=== PATIENT | female | born 1995 | race Caucasian/White ===

== ENCOUNTER 2018-03-08 11:12 | Emergency (ER) | payer MEDICAID ==
[2018-03-08] MEDS: IBUPROFEN 600 MG TAB PO (11:43)
== END 2018-03-08 13:05 | disposition home or self-care (01) ==
LOC: FTE 11:12
DX: S33.9XXA Sprain of unspecified parts of lumbar spine and pelvis, initial encounter (principal); S13.9XXA Sprain of joints and ligaments of unspecified parts of neck, initial encounter; V49.40XA Driver injured in collision with unspecified motor vehicles in traffic accident, initial encounter
CPT/HCPCS: 72040; 72100; 81025; 99283-25